=== PATIENT | male | born 1980 | race Caucasian/White ===

== ENCOUNTER 2017-11-13 09:28 | Emergency (ER) | payer OTHER ==
[~2017-11-13] VITALS: Ht 170.2 cm; Wt 79.0 kg
[2017-11-13] MEDS ORDERED: MIRT15 PO ×2 (10:13→10:17)
[2017-11-13] MEDS ORDERED: PROP10 PO ×2 (10:13→10:18)
[2017-11-13] MEDS ORDERED: Vistaril25 MG PO (10:13)
[2017-11-13] MEDS ORDERED: HYDPAM25 PO (10:17)
== END 2017-11-13 10:18 | disposition home or self-care (01) ==
LOC: ER 09:28
DX: F41.9 Anxiety disorder, unspecified (principal); F43.10 Post-traumatic stress disorder, unspecified; Z88.5 Allergy status to narcotic agent
CPT/HCPCS: 99282